=== PATIENT | female | born 1990 | race Caucasian/White ===

== ENCOUNTER 2017-11-04 13:38 | Emergency (ER) | payer SELFPAY ==
[2017-11-04] MEDS ORDERED: Sodium Chloride 0.9% 10 ML Syringe FLUSH PRN (13:58)
[2017-11-04] MEDS ORDERED: Sodium Chloride 0.9% 2.5 ML Syringe FLUSH PRN (13:58)
--- NOTE | 2017-11-04 14:00 | EDM.PDOC ---
ED HPI GENERAL MEDICAL PROBLEM - General Chief Complaint: Cardiovascular Problem Stated Complaint: HEART ISSUES Time Seen by Provider: 11/04/17 13:45 - History of Present Illness INITIAL COMMENTS - FREE TEXT/NARRATIVE: HISTORY AND PHYSICAL: History of present illness: The patient is a 27-year-old female who presents with palpitations and feeling like her heart is racing intermittently starting yesterday. The patient says she had palpitations in the past when she was 21 years old, 6 years ago, and had a workup including blood work thyroid studies Holter monitor and she does not know what she was diagnosed with but she was placed on blockers. She said that she took those for a while and then self stopped them but she says she never formally saw her chemical process operator or did more testing. She believes that she only saw an ER doctor. She also said that that time she had a low potassium. Currently the patient says that over the last 6 years she has not had palpitations and that this started yesterday. She thinks that anxiety is a component of it and she also states that she drinks on a daily basis and is going to start a rehabilitation program in [place] on Sunday. Patient says she is excited to start the rehabilitation program but she has been drinking every evening despite that. She denies drug use to me but does take prescription Adderall which she said she started within the last one year. She does drink caffeine and does not hydrate very well. She says she is eating and drinking normally and intermittently will gag but she is not vomiting nor does she have diarrhea. She says her stool is dark green and not black or bloody. She has no abdominal pain no chest pain no shortness of breath but says that when the palpitations happen she does feel little bit woozy but doesn't pass out or blackout. Patient also says she's not sure if she is and she is also worried that she has a UTI. After the patient was triaged and EKG was going to be performed which she refused and says she is concerned about the cost of this workup. In her interview with me she keeps trying to come up with hypothetical reasons for why this is happening including the drinking anxiety and is somewhat nonchalant about answering questions and the need for appropriate workup. She does not have a local provider. Patient tells us that she is on the Adderall for ADHD. She does admit that she does have anxiety issues and feels that she is somewhat anxious today and starting her program Review of systems: As per history of present illness and below otherwise all systems reviewed and negative. Past medical history: As per history of present illness and as reviewed below otherwise noncontributory. Surgical history: As per history of present illness and as reviewed below otherwise noncontributory. Social history: No reported history of drug or alcohol abuse. Family history: As per history of present illness and as reviewed below otherwise noncontributory. Physical exam: General: Well-developed well-nourished female who is speaking clearly in the ED and ambulates easily in the ED. Vital signs are noted by me patient was agreeable to have a environmental web crawler placed which shows a sinus rhythm which has a rate normally in the 70s to 90s but occasionally depending on our conversation will jump up to the low 100s. HEENT: Atraumatic, normocephalic, pupils reactive, negative for conjunctival pallor or scleral icterus, mucous membranes moist, throat clear, neck supple, nontender, trachea midline. Lungs: Clear to auscultation, breath sounds equal bilaterally, chest nontender. Heart: S1S2, regular, negative for clicks, rubs, or JVD. Abdomen: Soft, nondistended, nontender. Negative for masses or hepatosplenomegaly. Negative for costovertebral tenderness. Pelvis: Stable nontender. Genitourinary: Deferred. Rectal: Deferred. Extremities: Atraumatic, negative for cords or calf pain. Neurovascular unremarkable. Neuro: Awake, alert, oriented. Cranial nerves II through XII unremarkable. Cerebellum unremarkable. Motor and sensory unremarkable throughout. Exam nonfocal. the patient exhibits no tremulousness Diagnostics: CBC CMP troponin alcohol TSH magnesium UA UCG UDS urine culture Patient refused EKG--she says she feels like "she's had some many of them she doesn't want another one". Tried to stress the importance of doing one in light of her current symptomatology and she says she will think about it Therapeutics: IV O2 monitor IV fluids I did see the urine sample when the patient given to nursing and it was pink tinged but it is not grossly bloody As I discussed with the patient all of her testing results and that I would prescribe her antibiotics I have again asked the patient and we could perform the EKG and she again declines. She is finishing up her IV fluids and would like to proceed to go home and continue with her planned to start her rehabilitation program in 2 days. Impression: Palpitations by history stable, history of chronic alcohol use and Adderall use , new UTI/cystitis Definitive disposition and diagnosis as appropriate pending reevaluation and review of above. abdomen Pain Score (Numeric/FACES): 8 - Related Data Allergies Allergy/AdvReac Type Severity Reaction Status Date / Time penicillin Allergy Cannot Verified 11/04/17 13:44 Remember sulfabenzamide Allergy Cannot Verified 11/04/17 13:44 Remember Home Meds: Home Meds Amphetamine/Dextroamphetamine [Adderall] 20 mg PO ACBREAKFAST 11/04/17 [History] Amphetamine/Dextroamphetamine [Adderall] 30 mg PO DAILY 11/04/17 [History] cloNIDine [Catapres] 0.1 mg PO ASDIRECTED PRN 11/04/17 [History] Past Medical History Other OB/BYN History: low estrogen levels per pt report Social & Family History - Tobacco Use Smoking Status *Q: Never Smoker Second Hand Smoke Exposure: No - Recreational Drug Use Recreational Drug Use: No ED ROS GENERAL - Review of Systems Review Of Systems: ROS reveals no pertinent complaints other than HPI. ED EXAM, GENERAL - Physical Exam Exam: See Below (See dictation) Course - Vital Signs Last Recorded V/S: Last Vital Signs Temp 37.0 C 11/04/17 13:46 Pulse 95 11/04/17 13:46 Resp 18 11/04/17 13:46 BP 139/93 H 11/04/17 13:46 Pulse Ox 100 11/04/17 13:46 - Orders/Labs/Meds Orders: Active Orders 24 hr Category Date Time Status Cardiac Monitoring [RC] . DIRECTED Care 11/04/17 13:58 Active Oxygen Therapy, ED [RC] ASDIRECTED Care 11/04/17 13:58 Active Pulse Oximetry [RC] ASDIRECTED Care 11/04/17 13:58 Active CULTURE URINE [RM] Stat Lab 11/04/17 14:09 Received DRUG SCREEN, URINE [URCHEM] Stat Lab 11/04/17 14:09 Ordered HCG QUALITATIVE,URINE [URCHEM] Stat Lab 11/04/17 14:09 Ordered UA W/MICROSCOPIC [URIN] Stat Lab 11/04/17 14:07 Ordered Sodium Chloride 0.9% [Normal Saline] 1,000 ml Med 11/04/17 14:06 Active IV STAT Sodium Chloride 0.9% [Saline Flush] Med 11/04/17 13:58 Active 10 ml FLUSH ASDIRECTED PRN Sodium Chloride 0.9% [Saline Flush] Med 11/04/17 13:58 Active 2.5 ml FLUSH ASDIRECTED PRN Saline Lock Insert [OM.PC] Stat Oth 11/04/17 13:58 Ordered Medication Orders Sodium Chloride (Normal Saline) 1,000 mls @ 999 mls/hr IV STAT ONE Stop: 11/04/17 15:06 Last Admin: 11/04/17 14:14 Dose: 999 mls/hr Sodium Chloride (Saline Flush) 10 ml FLUSH ASDIRECTED PRN PRN Reason: Keep Vein Open Sodium Chloride (Saline Flush) 2.5 ml FLUSH ASDIRECTED PRN PRN Reason: Keep Vein Open Labs: Laboratory Tests 11/04/17 11/04/17 11/04/17 Range/Units 13:47 13:47 14:07 WBC 15.84 H (4.0-11.0) K/uL RBC 4.61 (4.30-5.90) M/uL Hgb 14.3 (12.0-16.0) g/dL Hct 41.2 (36.0-46.0) % MCV 89.4 (80.0-98.0) fL MCH 31.0 (27.0-32.0) pg MCHC 34.7 (31.0-37.0) g/dL RDW Std Deviation 44.6 (28.0-62.0) fl RDW Coeff of Simeon 14 (11.0-15.0) % Plt Count 290 (150-400) K/uL MPV 9.40 (7.40-12.00) fL Neut % (Auto) 77.3 (48.0-80.0) % Lymph % (Auto) 17.5 (16.0-40.0) % [place] % (Auto) 4.6 (0.0-15.0) % Eos % (Auto) 0.3 (0.0-7.0) % Baso % (Auto) 0.3 (0.0-1.5) % Neut # (Auto) 12.3 H (1.4-5.7) K/uL Lymph # (Auto) 2.8 H (0.6-2.4) K/uL Sterling # (Auto) 0.7 (0.0-0.8) K/uL Eos # (Auto) 0.1 (0.0-0.7) K/uL Baso # (Auto) 0.0 (0.0-0.1) K/uL Nucleated RBC % 0.0 /100WBC Nucleated RBCs # 0 K/uL Sodium 139 (136-145) mmol/L Potassium 3.9 (3.5-5.1) mmol/L Chloride 101 (98-107) mmol/L Carbon Dioxide 26.9 (21.0-32.0) mmol/L BUN 14 (7.0-18.0) mg/dL Creatinine 0.8 (0.6-1.0) mg/dL Est Cr Clr Drug Dosing TNP Estimated GFR (MDRD) > 60.0 ml/min Glucose 95 (74-106) mg/dL Calcium 9.5 (8.5-10.1) mg/dL Magnesium 1.5 (1.5-2.0) mg/dL Total Bilirubin 0.9 (0.2-1.0) mg/dL AST 36 (15-37) IU/L ALT 53 (14-63) IU/L Alkaline Phosphatase 72 (46-116) U/L Troponin I < 0.050 (0.000-0.056) ng/mL Total Protein 8.1 (6.4-8.2) g/dL Albumin 4.5 (3.4-5.0) g/dL Globulin 3.6 H (2.0-3.5) g/dL Albumin/Globulin Ratio 1.3 (1.3-2.8) TSH 3rd Generation 1.57 (0.36-3.74) uIU/mL Urine Color DARK YELLOW Urine Appearance CLOUDY Urine pH 6.5 (5.0-8.0) Ur Specific [place] 1.025 (1.001-1.035) Urine Protein 100 (NEGATIVE) mg/dL Urine Glucose (UA) NEGATIVE (NEGATIVE) mg/dL Urine Ketones NEGATIVE (NEGATIVE) mg/dL Urine Occult Blood LARGE H (NEGATIVE) Urine Nitrite NEGATIVE (NEGATIVE) Urine Bilirubin NEGATIVE (NEGATIVE) Urine Urobilinogen 0.2 (<2.0) EU/dL Ur Leukocyte Esterase LARGE (NEGATIVE) Urine RBC 15-20 (0-2/HPF) Urine WBC 75-100 (0-5/HPF) Ur Epithelial Cells MODERATE (NONE-FEW) Amorphous Sediment LIGHT (NEGATIVE) Urine Bacteria 1+ H (NEGATIVE) Urine Mucus LIGHT (NONE-MOD) Urine HCG, Qual (NEGATIVE) Urine Opiates Screen (NEGATIVE) Ur Oxycodone Screen (NEGATIVE) Urine Methadone Screen (NEGATIVE) Ur Barbiturates Screen (NEGATIVE) Ur Phencyclidine Scrn (NEGATIVE) Ur Amphetamine Screen (NEGATIVE) U Methamphetamines Scrn (NEGATIVE) U Benzodiazepines Scrn (NEGATIVE) U Cocaine Metab Screen (NEGATIVE) U Marijuana (THC) Screen (NEGATIVE) Ethyl Alcohol <3 mg/dL 11/04/17 11/04/17 Range/Units 14:09 14:09 WBC (4.0-11.0) K/uL RBC (4.30-5.90) M/uL Hgb (12.0-16.0) g/dL Hct (36.0-46.0) % MCV (80.0-98.0) fL MCH (27.0-32.0) pg MCHC (31.0-37.0) g/dL RDW Std Deviation (28.0-62.0) fl RDW Coeff of Simeon (11.0-15.0) % Plt Count (150-400) K/uL MPV (7.40-12.00) fL Neut % (Auto) (48.0-80.0) % Lymph % (Auto) (16.0-40.0) % Sterling % (Auto) (0.0-15.0) % Eos % (Auto) (0.0-7.0) % Baso % (Auto) (0.0-1.5) % Neut # (Auto) (1.4-5.7) K/uL Lymph # (Auto) (0.6-2.4) K/uL Sterling # (Auto) (0.0-0.8) K/uL Eos # (Auto) (0.0-0.7) K/uL Baso # (Auto) (0.0-0.1) K/uL Nucleated RBC % /100WBC Nucleated RBCs # K/uL Sodium (136-145) mmol/L Potassium (3.5-5.1) mmol/L Chloride (98-107) mmol/L Carbon Dioxide (21.0-32.0) mmol/L BUN (7.0-18.0) mg/dL Creatinine (0.6-1.0) mg/dL Est Cr Clr Drug Dosing Estimated GFR (MDRD) ml/min Glucose (74-106) mg/dL Calcium (8.5-10.1) mg/dL Magnesium (1.5-2.0) mg/dL Total Bilirubin (0.2-1.0) mg/dL AST (15-37) IU/L ALT (14-63) IU/L Alkaline Phosphatase (46-116) U/L Troponin I (0.000-0.056) ng/mL Total Protein (6.4-8.2) g/dL Albumin (3.4-5.0) g/dL Globulin (2.0-3.5) g/dL Albumin/Globulin Ratio (1.3-2.8) TSH 3rd Generation (0.36-3.74) uIU/mL Urine Color Urine Appearance Urine pH (5.0-8.0) Ur Specific [place] (1.001-1.035) Urine Protein (NEGATIVE) mg/dL Urine Glucose (UA) (NEGATIVE) mg/dL Urine Ketones (NEGATIVE) mg/dL Urine Occult Blood (NEGATIVE) Urine Nitrite (NEGATIVE) Urine Bilirubin (NEGATIVE) Urine Urobilinogen (<2.0) EU/dL Ur Leukocyte Esterase (NEGATIVE) Urine RBC (0-2/HPF) Urine WBC (0-5/HPF) Ur Epithelial Cells (NONE-FEW) Amorphous Sediment (NEGATIVE) Urine Bacteria (NEGATIVE) Urine Mucus (NONE-MOD) Urine HCG, Qual NEGATIVE (NEGATIVE) Urine Opiates Screen NEGATIVE (NEGATIVE) Ur Oxycodone Screen NEGATIVE (NEGATIVE) Urine Methadone Screen NEGATIVE (NEGATIVE) Ur Barbiturates Screen NEGATIVE (NEGATIVE) Ur Phencyclidine Scrn NEGATIVE (NEGATIVE) Ur Amphetamine Screen POSITIVE (NEGATIVE) U Methamphetamines Scrn NEGATIVE (NEGATIVE) U Benzodiazepines Scrn NEGATIVE (NEGATIVE) U Cocaine Metab Screen NEGATIVE (NEGATIVE) U Marijuana (THC) Screen NEGATIVE (NEGATIVE) Ethyl Alcohol mg/dL Meds: Medications Generic Name Dose Route Start Last Admin Trade Name Freq PRN Reason Stop Dose Admin Sodium Chloride 1,000 mls @ 999 mls/hr 11/04/17 14:06 11/04/17 14:14 Normal Saline IV 11/04/17 15:06 999 mls/hr STAT ONE Administration Sodium Chloride 10 ml 11/04/17 13:58 Saline Flush FLUSH ASDIRECTED PRN Keep Vein Open Sodium Chloride 2.5 ml 11/04/17 13:58 Saline Flush FLUSH ASDIRECTED PRN Keep Vein Open Departure - Departure Time of Disposition: 15:05 Disposition: Home, Self-Care 01 Condition: Good Clinical Impression: Palpitations, Alcohol use UTI (urinary tract infection) Qualifiers: Urinary tract infection type: acute cystitis Hematuria presence: with hematuria Qualified Code(s): N30.01 - Acute cystitis with hematuria Forms: ED Department Discharge Additional Instructions: The following information is given to patients seen in the emergency department who are being discharged to home. This information is to outline your options for follow-up care. We provide all patients seen in our emergency department with a follow-up referral. The need for follow-up, as well as the timing and circumstances, are variable depending upon the specifics of your emergency department visit. If you don't have a primary care physician on staff, we will provide you with a referral. We always advise you to contact your personal physician following an emergency department visit to inform them of the circumstance of the visit and for follow-up with them and/or the need for any referrals to a consulting specialist. The emergency department will also refer you to a specialist when appropriate. This referral assures that you have the opportunity for followup care with a specialist. All of these measure are taken in an effort to provide you with optimal care, which includes your followup. Under all circumstances we always encourage you to contact your private physician who remains a resource for coordinating your care. When calling for followup care, please make the office aware that this follow-up is from your recent emergency room visit. If for any reason you are refused follow-up, please contact the [facility] emergency department at and ask to speak to the emergency department charge nurse. [facility] Primary care- Internal Medicine and Family [place] [phone] Please take antibiotics until they are finished and push hydration and avoiding caffeinated products. Please discuss with your provider use of Adderall going forward. Please refrain from and/or stop drinking alcohol and continue on to your rehabilitation program as scheduled in 2 days. If you opt to connect with one of our providers in the clinic please use the resources given to above. Return to ER as needed and as discussed - My Orders Last 24 Hours: My Active Orders 11/04/17 13:58 Cardiac Monitoring [RC] . DIRECTED Oxygen Therapy, ED [RC] ASDIRECTED Pulse Oximetry [RC] ASDIRECTED Sodium Chloride 0.9% [Saline Flush] 10 ml FLUSH ASDIRECTED PRN Sodium Chloride 0.9% [Saline Flush] 2.5 ml FLUSH ASDIRECTED PRN Saline Lock Insert [OM.PC] Stat 11/04/17 14:06 Sodium Chloride 0.9% [Normal Saline] 1,000 ml IV STAT 11/04/17 14:07 UA W/MICROSCOPIC [URIN] Stat 11/04/17 14:09 CULTURE URINE [RM] Stat DRUG SCREEN, URINE [URCHEM] Stat HCG QUALITATIVE,URINE [URCHEM] Stat - Assessment/Plan Last 24 Hours: My Active Orders 11/04/17 13:58 Cardiac Monitoring [RC] . DIRECTED Oxygen Therapy, ED [RC] ASDIRECTED Pulse Oximetry [RC] ASDIRECTED Sodium Chloride 0.9% [Saline Flush] 10 ml FLUSH ASDIRECTED PRN Sodium Chloride 0.9% [Saline Flush] 2.5 ml FLUSH ASDIRECTED PRN Saline Lock Insert [OM.PC] Stat 11/04/17 14:06 Sodium Chloride 0.9% [Normal Saline] 1,000 ml IV STAT 11/04/17 14:07 UA W/MICROSCOPIC [URIN] Stat 11/04/17 14:09 CULTURE URINE [RM] Stat DRUG SCREEN, URINE [URCHEM] Stat HCG QUALITATIVE,URINE [URCHEM] Stat
[2017-11-04] MEDS ORDERED: Sodium Chloride 0.9% 1,000 ML IV ONE (14:06)
[2017-11-04 14:26] LABS: CHLORIDE,CL 101 mmol/L (98-107); SODIUM,NA 139 mmol/L (136-145)
[2017-11-04 15:33] VITALS: BP 129/91
== END 2017-11-04 15:29 | disposition home or self-care (01) ==
LOC: MW.ED 13:38
DX: N30.01 Acute cystitis with hematuria (principal); R00.2 Palpitations; F10.929 Alcohol use, unspecified with intoxication, unspecified; Z88.0 Allergy status to penicillin; Z88.2 Allergy status to sulfonamides; Z79.899 Other long term (current) drug therapy
CPT/HCPCS: 80053; 80305; 81001; 81025; 83735; 84443; 84484; 85025; 87086; 87088; 87186; 96360; 99284; G0480; J7040; 99283

== ENCOUNTER 2018-12-12 20:24 | Emergency (ER) | payer OTHER ==
--- NOTE | 2018-12-12 21:31 | EDM.PDOC ---
ED HPI GENERAL MEDICAL PROBLEM - General Chief Complaint: ENT Problem Stated Complaint: MOUTH SORES/FACE SWELLING Time Seen by Provider: 12/12/18 20:26 Source of Information: Reports: Patient History Limitations: Reports: No Limitations - History of Present Illness INITIAL COMMENTS - FREE TEXT/NARRATIVE: HISTORY AND PHYSICAL: History of present illness: Patient is a 28-year-old female who presents to the ED today with concern of having pink or sores throughout her mouth causing pain. Patient states she's been using [id number] numbing medications but still is having symptoms. Patient states this has been ongoing since yesterday. Patient states she had called her IMPORT EXPORT COORDINATOR as she is who told her to come to the ED as this is not related. Patient states she has pain with eating and drinking but she has been able to do so appropriately. Patient denies any other symptoms at this time. Patient denies fever, chills, chest pain, shortness of breath, or cough. Denies headache, neck stiff ness, change in vision, syncope, or near syncope. Denies nausea, vomiting, abdominal pain, diarrhea, constipation, or dysuria. Has not noted any blood in urine or stool. Patient has been eating and drinking appropriately. Review of systems: As per history of present illness and below otherwise all systems reviewed and negative. Past medical history: As per history of present illness and as reviewed below otherwise noncontributory. Surgical history: As per history of present illness and as reviewed below otherwise noncontributory. Social history: See social history for further information Family history: As per history of present illness and as reviewed below otherwise noncontributory. Physical exam: General: Patient is alert, oriented, and in no acute distress. Patient sitting comfortably on exam table. HEENT: Atraumatic, normocephalic, pupils equal and reactive bilaterally, negative for conjunctival pallor or scleral icterus, mucous membranes moist, TMs normal bilaterally, neck supple, nontender, trachea midline. No drooling or trismus noted. No meningeal signs. No hot potato voice noted. Throughout entire mouth are multiple aphthous ulcers scattered in no particular pattern; painful to touch. Lungs: Clear to auscultation, breath sounds equal bilaterally, chest nontender. Heart: S1S2, regular rate and rhythm without overt murmur Abdomen: Soft, nondistended, nontender. Negative for masses or hepatosplenomegaly. Negative for costovertebral tenderness. Pelvis: Stable nontender. Genitourinary: Deferred. Rectal: Deferred. Skin: Intact, warm, dry. No lesions or rashes noted. Extremities: Atraumatic, negative for cords or calf pain. Neurovascular unremarkable. Neuro: Awake, alert, oriented. Cranial nerves II through XII unremarkable. Cerebellum unremarkable. Motor and sensory unremarkable throughout. Exam nonfocal. Notes: Dr. Cheng directly involved in patient care. FHR: 155, Patient requesting basic labwork. Voices understanding and is agreeable to plan of care. Denies any further questions or concerns at this time. Diagnostics: CBC, CMP, UA, mono, strep, influenza (per patient request) Therapeutics: None Prescription: None Impression: Viral stomatitis Medical screening exam Plan: 1. You can use Tylenol as directed for pain and discomfort. This is safe to use in . 2. Follow-up with her IMPORT EXPORT COORDINATOR as discussed. Return to the ED as needed and as discussed. Definitive disposition and diagnosis as appropriate pending reevaluation and review of above. Oral/Mouth Pain Score (Numeric/FACES): 10 - Related Data Allergies Allergy/AdvReac Type Severity Reaction Status Date / Time penicillin Allergy Cannot Verified 12/12/18 20:29 Remember sulfabenzamide Allergy Cannot Verified 12/12/18 20:29 Remember Home Meds: Home Meds Ondansetron [Zofran ODT] 4 mg PO Q6H PRN 08/10/18 [History] PNV No.115/Iron Fumarate/FA [ 19 Chewable Tablet] 1 tab PO DAILY [History] Past Medical History HEENT History: Reports: None Cardiovascular History: Reports: Other (See Below) Other Cardiovascular History: heart palpitations Respiratory History: Reports: Asthma Gastrointestinal History: Reports: None Genitourinary History: Reports: None IMPORT EXPORT COORDINATOR History: Reports: , Other (See Below) Other IMPORT EXPORT COORDINATOR History: low estrogen levels per pt report Musculoskeletal History: Reports: None Neurological History: Reports: None Psychiatric History: Reports: ADHD, Suicidal Ideation Endocrine/Metabolic History: Reports: None Hematologic History: Reports: None Immunologic History: Reports: None Oncologic (Cancer) History: Reports: None Dermatologic History: Reports: None - Infectious Disease History Infectious Disease History: Reports: Chicken Pox - Past Surgical History Head Surgeries/Procedures: Reports: None HEENT Surgical History: Reports: Myringotomy w Tube(s), Tonsillectomy Cardiovascular Surgical History: Reports: None Female Surgical History: Reports: Breast Implant Oncologic Surgical History: Reports: None Dermatological Surgical History: Reports: Plastic Surgical Reconstruction/Repair Social & Family History - Family History Family Medical History: Noncontributory - Tobacco Use Smoking Status *Q: Never Smoker - Caffeine Use Caffeine Use: Reports: Soda - Recreational Drug Use Recreational Drug Use: No ED ROS ENT - Review of Systems Review Of Systems: ROS reveals no pertinent complaints other than HPI. ED EXAM, ENT - Physical Exam Exam: See Below (See dictation) Course - Vital Signs Last Recorded V/S: Last Vital Signs Temp 36.2 C 12/12/18 20:29 Pulse 84 12/12/18 20:29 Resp 19 12/12/18 20:29 BP 138/93 H 12/12/18 20:29 Pulse Ox 100 12/12/18 20:29 - Orders/Labs/Meds Orders: Active Orders 24 hr Category Date Time Status CULTURE STREP A CONFIRMATION [RM] Stat Lab 12/12/18 20:50 Results CULTURE URINE [RM] Stat Lab 12/12/18 21:10 Received STREP SCRN A RAPID W CULT CONF [RM] Stat Lab 12/12/18 20:50 Results Labs: Laboratory Tests 12/12/18 12/12/18 12/12/18 Range/Units 20:50 20:50 20:50 WBC 11.41 H (4.0-11.0) K/uL RBC 3.72 L (4.30-5.90) M/uL Hgb 11.2 L (12.0-16.0) g/dL Hct 32.7 L (36.0-46.0) % MCV 87.9 (80.0-98.0) fL MCH 30.1 (27.0-32.0) pg MCHC 34.3 (31.0-37.0) g/dL RDW Std Deviation 43.0 (28.0-62.0) fl RDW Coeff of Simeon 13 (11.0-15.0) % Plt Count 185 (150-400) K/uL MPV 10.90 (7.40-12.00) fL Neut % (Auto) 78.5 (48.0-80.0) % Lymph % (Auto) 10.4 L (16.0-40.0) % Dyer % (Auto) 11.0 (0.0-15.0) % Eos % (Auto) 0.0 (0.0-7.0) % Baso % (Auto) 0.1 (0.0-1.5) % Neut # (Auto) 9.0 H (1.4-5.7) K/uL Lymph # (Auto) 1.2 (0.6-2.4) K/uL Dyer # (Auto) 1.3 H (0.0-0.8) K/uL Eos # (Auto) 0.0 (0.0-0.7) K/uL Baso # (Auto) 0.0 (0.0-0.1) K/uL Nucleated RBC % 0.0 /100WBC Nucleated RBCs # 0 K/uL Sodium 135 L (136-145) mmol/L Potassium 3.5 (3.5-5.1) mmol/L Chloride 103 (98-107) mmol/L Carbon Dioxide 19.7 L (21.0-32.0) mmol/L BUN 10 (7.0-18.0) mg/dL Creatinine 0.5 L (0.6-1.0) mg/dL Est Cr Clr Drug Dosing 147.23 mL/min Estimated GFR (MDRD) > 60.0 ml/min Glucose 85 (74-106) mg/dL Calcium 8.6 (8.5-10.1) mg/dL Total Bilirubin 0.2 (0.2-1.0) mg/dL AST 15 (15-37) IU/L ALT 10 L (14-63) IU/L Alkaline Phosphatase 86 (46-116) U/L Total Protein 6.5 (6.4-8.2) g/dL Albumin 2.7 L (3.4-5.0) g/dL Globulin 3.8 (2.6-4.0) g/dL Albumin/Globulin Ratio 0.7 L (0.9-1.6) Urine Color Urine Appearance Urine pH (5.0-8.0) Ur Specific Underhill (1.001-1.035) Urine Protein (NEGATIVE) mg/dL Urine Glucose (UA) (NEGATIVE) mg/dL Urine Ketones (NEGATIVE) mg/dL Urine Occult Blood (NEGATIVE) Urine Nitrite (NEGATIVE) Urine Bilirubin (NEGATIVE) Urine Urobilinogen (<2.0) EU/dL Ur Leukocyte Esterase (NEGATIVE) Urine RBC (0-2/HPF) Urine WBC (0-5/HPF) Ur Epithelial Cells (NONE-FEW) Urine Bacteria (NEGATIVE) Monoscreen NEGATIVE (NEG) 12/12/18 Range/Units 21:10 WBC (4.0-11.0) K/uL RBC (4.30-5.90) M/uL Hgb (12.0-16.0) g/dL Hct (36.0-46.0) % MCV (80.0-98.0) fL MCH (27.0-32.0) pg MCHC (31.0-37.0) g/dL RDW Std Deviation (28.0-62.0) fl RDW Coeff of Simeon (11.0-15.0) % Plt Count (150-400) K/uL MPV (7.40-12.00) fL Neut % (Auto) (48.0-80.0) % Lymph % (Auto) (16.0-40.0) % Dyer % (Auto) (0.0-15.0) % Eos % (Auto) (0.0-7.0) % Baso % (Auto) (0.0-1.5) % Neut # (Auto) (1.4-5.7) K/uL Lymph # (Auto) (0.6-2.4) K/uL Dyer # (Auto) (0.0-0.8) K/uL Eos # (Auto) (0.0-0.7) K/uL Baso # (Auto) (0.0-0.1) K/uL Nucleated RBC % /100WBC Nucleated RBCs # K/uL Sodium (136-145) mmol/L Potassium (3.5-5.1) mmol/L Chloride (98-107) mmol/L Carbon Dioxide (21.0-32.0) mmol/L BUN (7.0-18.0) mg/dL Creatinine (0.6-1.0) mg/dL Est Cr Clr Drug Dosing mL/min Estimated GFR (MDRD) ml/min Glucose (74-106) mg/dL Calcium (8.5-10.1) mg/dL Total Bilirubin (0.2-1.0) mg/dL AST (15-37) IU/L ALT (14-63) IU/L Alkaline Phosphatase (46-116) U/L Total Protein (6.4-8.2) g/dL Albumin (3.4-5.0) g/dL Globulin (2.6-4.0) g/dL Albumin/Globulin Ratio (0.9-1.6) Urine Color YELLOW Urine Appearance SLT CLOUDY Urine pH 6.0 (5.0-8.0) Ur Specific Underhill <= 1.005 (1.001-1.035) Urine Protein NEGATIVE (NEGATIVE) mg/dL Urine Glucose (UA) NEGATIVE (NEGATIVE) mg/dL Urine Ketones 40 H (NEGATIVE) mg/dL Urine Occult Blood MODERATE H (NEGATIVE) Urine Nitrite NEGATIVE (NEGATIVE) Urine Bilirubin NEGATIVE (NEGATIVE) Urine Urobilinogen 0.2 (<2.0) EU/dL Ur Leukocyte Esterase SMALL H (NEGATIVE) Urine RBC 0-2 (0-2/HPF) Urine WBC 1-3 (0-5/HPF) Ur Epithelial Cells MODERATE (NONE-FEW) Urine Bacteria RARE (NEGATIVE) Monoscreen (NEG) Departure - Departure Time of Disposition: 21:49 Disposition: Home, Self-Care 01 Clinical Impression: Viral stomatitis, Encounter for medical screening examination - Discharge Information Referrals: Nelda Singh MD [Primary Care Provider] - Forms: ED Department Discharge Additional Instructions: The following information is given to patients seen in the emergency department who are being discharged to home. This information is to outline your options for follow-up care. We provide all patients seen in our emergency department with a follow-up referral. The need for follow-up, as well as the timing and circumstances, are variable depending upon the specifics of your emergency department visit. If you don't have a primary care physician on staff, we will provide you with a referral. We always advise you to contact your personal physician following an emergency department visit to inform them of the circumstance of the visit and for follow-up with them and/or the need for any referrals to a consulting specialist. The emergency department will also refer you to a specialist when appropriate. This referral assures that you have the opportunity for follow-up care with a specialist. All of these measure are taken in an effort to provide you with optimal care, which includes your follow-up. Under all circumstances we always encourage you to contact your private physician who remains a resource for coordinating your care. When calling for follow-up care, please make the office aware that this follow-up is from your recent emergency room visit. If for any reason you are refused follow-up, please contact the [facility] Emergency Department at and asked to speak to the emergency department charge nurse. [facility] Primary Care [address] [place] [address] [facility] [address] [place] [id number] 1. You can use Tylenol as directed for pain and discomfort. This is safe to use in . 2. Follow-up with her IMPORT EXPORT COORDINATOR as discussed. Return to the ED as needed and as discussed. - My Orders Last 24 Hours: My Active Orders 12/12/18 20:50 CULTURE STREP A CONFIRMATION [RM] Stat STREP SCRN A RAPID W CULT CONF [RM] Stat 12/12/18 21:10 CULTURE URINE [RM] Stat - Assessment/Plan Last 24 Hours: My Active Orders 12/12/18 20:50 CULTURE STREP A CONFIRMATION [RM] Stat STREP SCRN A RAPID W CULT CONF [RM] Stat 12/12/18 21:10 CULTURE URINE [RM] Stat
[2018-12-12 21:33] LABS: CHLORIDE,CL 103 mmol/L (98-107); SODIUM,NA 135 mmol/L (136-145)
[2018-12-12 23:18] VITALS: BP 120/74
== END 2018-12-12 22:05 | disposition home or self-care (01) ==
LOC: MW.ED 20:24
DX: K12.1 Other forms of stomatitis (principal); B97.89 Other viral agents as the cause of diseases classified elsewhere; J45.909 Unspecified asthma, uncomplicated; Z88.0 Allergy status to penicillin; Z88.2 Allergy status to sulfonamides
CPT/HCPCS: 36415; 80053; 81001; 85025; 86308; 87081; 87086; 87804; 87880-QW; 99282; 99283

== ENCOUNTER 2019-03-15 16:49 | Emergency (ER) | payer OTHER ==
[2019-03-15] MEDS ORDERED: Sodium Chloride 0.9% 1,000 ML IV ONE (17:22)
--- NOTE | 2019-03-15 17:26 | EDM.PDOCBH ---
ED HPI GENERAL MEDICAL PROBLEM - General Chief Complaint: Behavioral/Psych Stated Complaint: DEPRESSION Time Seen by Provider: 03/15/19 17:04 Source of Information: Reports: Patient History Limitations: Reports: No Limitations - History of Present Illness INITIAL COMMENTS - FREE TEXT/NARRATIVE: HISTORY AND PHYSICAL: History of present illness: Patient is a 28-year-old female who presents to the emergency room with complaints of depression. She states she does have a long-standing history of anxiety, depression and suicidal ideation along with alcohol abuse prior to her . She states she had an uneventful , delivered in [place] by Dr. Singh. Post delivery she had no complications. She was started on Zoloft approximately one week ago, had taken this previously and had good results. She is currently living with her father whom she believes is not very reliable. She states she feels sad and anxious. She denies having any thoughts of self-harm, harming others or harming her infant. The infant is asleep and resting in her arms comfortably appears well-nourished and well taken care of. She has been breast-feeding although has been having some difficulty over the past week as she is not producing as much and has been supplementing with formula. She states that she has not been eating or drinking as much. Review of systems: As per history of present illness and below otherwise all systems reviewed and negative. Past medical history: As per history of present illness and as reviewed below otherwise noncontributory. Surgical history: As per history of present illness and as reviewed below otherwise noncontributory. Social history: See social history for further information Family history: As per history of present illness and as reviewed below otherwise noncontributory. Physical exam: General: Well-developed and well-nourished 28-year-old female. Alert and oriented. She is tearful during examination ON no acute distress. HEENT: Atraumatic, normocephalic, pupils equal and reactive bilaterally, negative for conjunctival pallor or scleral icterus, mucous membranes moist, TMs normal bilaterally, throat clear, neck supple, nontender, trachea midline. No drooling or trismus noted. No meningeal signs. No hot potato voice noted. Lungs: Clear to auscultation, breath sounds equal bilaterally, chest nontender. Heart: S1S2, regular rate and rhythm without overt murmur Abdomen: Soft, nondistended, nontender. Negative for masses or hepatosplenomegaly. Negative for costovertebral tenderness. Pelvis: Stable nontender. Genitourinary: Deferred. Rectal: Deferred. Skin: Intact, warm, dry. No lesions or rashes noted. Extremities: Atraumatic, moves all extremities per self without difficulty or deficits, negative for cords or calf pain. Neurovascular unremarkable. Neuro: Awake, alert, oriented. Cranial nerves II through XII unremarkable. Cerebellum unremarkable. Motor and sensory unremarkable throughout. Exam nonfocal. Notes: Patient was asked several times by myself and nursing staff about thoughts of self harm, suicide, or harming baby/others: she denies any such thoughts. Patient refuses to talk with long term care social worker. She states that she does not want to talk with anyone who would want to separate her from her baby. She is agreeable to talking to [facility]. [facility]nel from [facility] was contacted to talk to patient about community resources. ALEXANDR Perez electrical instrumentation technician, she is aware of this patient and suggests that her Zoloft to be increased to 150 mg and close follow-up. Patient is requesting to be discharged to home, states she will go to [place] to follow-up with Dr. Singh. Patient's father is at the bedside. Supportive care measures were reviewed and discussed. Voices understanding and is agreeable to plan of care. Denies any further questions or concerns at this time. Diagnostics: CBC, CMP, Drug Screen, TSH, UA (patient unable to give sample- missed the cup) Therapeutics: IV fluids Prescription: None Impression: Post Depression Plan: 1. If at anytime you feel unsafe (whether you feel like harming yourself, others or your baby) call 911 and return to the emergency room. 2. Increase your Zoloft dose to 150mg daily. 3. Follow up with your primary care provider (phone numbers listed) within the next week. 4. Return to the ED as needed as discussed. Definitive disposition and diagnosis as appropriate pending reevaluation and review of above. - Related Data Allergies Allergy/AdvReac Type Severity Reaction Status Date / Time penicillin Allergy Cannot Verified 02/06/19 22:23 MDT Remember sulfabenzamide Allergy Cannot Verified 02/06/19 22:23 MDT Remember Home Meds: Home Meds Ondansetron [Zofran ODT] 4 mg PO Q6H PRN 08/10/18 [History] PNV No.115/Iron Fumarate/FA [ 19 Chewable Tablet] 1 tab PO DAILY [History] Dextroamphetamine/Amphetamine [Adderall 20 mg Tablet] 20 mg PO ASDIRECTED PRN [History] Dextroamphetamine/Amphetamine [Adderall] 30 mg PO DAILY 03/15/19 [History] Sertraline [Zoloft] 50 mg PO DAILY 03/15/19 [History] Past Medical History HEENT History: Reports: Other (See Below) Other HEENT History: 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 Cardiovascular History: Reports: Other (See Below) Other Cardiovascular History: heart palpitations Respiratory History: Reports: Asthma Gastrointestinal History: Reports: Chronic Constipation, GERD Genitourinary History: Reports: None PHYSICAL THERAPY TEACHER History: Reports: , Spontaneous Other PHYSICAL THERAPY TEACHER History: low estrogen levels per pt report Musculoskeletal History: Reports: None Neurological History: Reports: None Psychiatric History: Reports: ADHD, Anxiety, Depression Other Psychiatric History: hx of impulsiveness, suicide attempt 02/2015, denies any current ideation Endocrine/Metabolic History: Reports: None Hematologic History: Reports: None Immunologic History: Reports: None Oncologic (Cancer) History: Reports: None Dermatologic History: Reports: None - Infectious Disease History Infectious Disease History: Reports: Chicken Pox Other Infectious Disease History: Hx of MRSA - Past Surgical History HEENT Surgical History: Reports: Myringotomy w Tube(s), Tonsillectomy Female Surgical History: Reports: Breast Implant Social & Family History - Family History Family Medical History: Noncontributory HEENT: Reports: None Cardiac: Reports: Hypertension Psychiatric: Reports: ADHD, Anxiety, Depression Endocrine/Metabolic: Reports: Diabetes, type II Dermatologic: Reports: None - Caffeine Use Caffeine Use: Reports: Soda ED ROS GENERAL - Review of Systems Review Of Systems: ROS reveals no pertinent complaints other than HPI. ED EXAM, BEHAVIORAL HEALTH - Physical Exam Exam: See Below (See dictation) COURSE, BEHAVIORAL HEALTH COMP - Course Vital Signs: Last Vital Signs Temp 97.7 F 03/15/19 17:01 Pulse 82 03/15/19 17:01 Resp 18 03/15/19 17:01 BP 127/95 H 08/31/19 17:01 Pulse Ox 100 03/15/19 17:01 Orders, Labs, Meds: Active Orders 24 hr Category Date Time Status DRUG SCREEN, URINE [URCHEM] Stat Lab 03/15/19 17:22 Ordered UA RFX GILSON AND CULT IF INDIC [URIN] Stat Lab 03/15/19 17:22 Ordered Laboratory Tests 03/15/19 03/15/19 Range/Units 17:10 17:10 WBC 8.69 (4.0-11.0) K/uL RBC 4.36 (4.30-5.90) M/uL Hgb 12.3 (12.0-16.0) g/dL Hct 36.9 (36.0-46.0) % MCV 84.6 (80.0-98.0) fL MCH 28.2 (27.0-32.0) pg MCHC 33.3 (31.0-37.0) g/dL RDW Std Deviation 46.2 (28.0-62.0) fl RDW Coeff of Simeon 15 (11.0-15.0) % Plt Count 351 (150-400) K/uL MPV 9.70 (7.40-12.00) fL Neut % (Auto) 62.5 (48.0-80.0) % Lymph % (Auto) 29.5 (16.0-40.0) % Addison % (Auto) 6.3 (0.0-15.0) % Eos % (Auto) 1.5 (0.0-7.0) % Baso % (Auto) 0.2 (0.0-1.5) % Neut # (Auto) 5.4 (1.4-5.7) K/uL Lymph # (Auto) 2.6 H (0.6-2.4) K/uL Addison # (Auto) 0.6 (0.0-0.8) K/uL Eos # (Auto) 0.1 (0.0-0.7) K/uL Baso # (Auto) 0.0 (0.0-0.1) K/uL Nucleated RBC % 0.0 /100WBC Nucleated RBCs # 0 K/uL Sodium 141 (136-145) mmol/L Potassium 3.8 (3.5-5.1) mmol/L Chloride 105 (98-107) mmol/L Carbon Dioxide 23.9 (21.0-32.0) mmol/L BUN 16 (7.0-18.0) mg/dL Creatinine 0.8 (0.6-1.0) mg/dL Est Cr Clr Drug Dosing 92.02 mL/min Estimated GFR (MDRD) > 60.0 ml/min Glucose 92 (74-106) mg/dL Calcium 9.4 (8.5-10.1) mg/dL Total Bilirubin 0.6 (0.2-1.0) mg/dL AST 24 (15-37) IU/L ALT 24 (14-63) IU/L Alkaline Phosphatase 127 H (46-116) U/L Total Protein 7.1 (6.4-8.2) g/dL Albumin 3.3 L (3.4-5.0) g/dL Globulin 3.8 (2.6-4.0) g/dL Albumin/Globulin Ratio 0.9 (0.9-1.6) TSH 3rd Generation 1.28 (0.36-3.74) uIU/mL Medications Discontinued Medications Generic Name Dose Route Start Last Admin Trade Name Freq PRN Reason Stop Dose Admin Sodium Chloride 1,000 mls @ 999 mls/hr 03/15/19 17:22 03/15/19 17:48 Normal Saline IV 03/15/19 18:22 999 mls/hr STAT ONE Administration Departure - Departure Time of Disposition: 19:04 Disposition: Home, Self-Care 01 Clinical Impression: Post depression - Discharge Information Instructions: Baby Blues Referrals: PCP,Unknown [Primary Care Provider] - Forms: ED Department Discharge Additional Instructions: The following information is given to patients seen in the emergency department who are being discharged to home. This information is to outline your options for follow-up care. We provide all patients seen in our emergency department with a follow-up referral. The need for follow-up, as well as the timing and circumstances, are variable depending upon the specifics of your emergency department visit. If you don't have a primary care physician on staff, we will provide you with a referral. We always advise you to contact your personal physician following an emergency department visit to inform them of the circumstance of the visit and for follow-up with them and/or the need for any referrals to a consulting specialist. The emergency department will also refer you to a specialist when appropriate. This referral assures that you have the opportunity for follow-up care with a specialist. All of these measure are taken in an effort to provide you with optimal care, which includes your follow-up. Under all circumstances we always encourage you to contact your private physician who remains a resource for coordinating your care. When calling for follow-up care, please make the office aware that this follow-up is from your recent emergency room visit. If for any reason you are refused follow-up, please contact the [facility] Emergency Department at and asked to speak to the emergency department charge nurse. [facility] Primary Care [address] [place] [id number] [facility] [address] [place] [id number] [facility] [address] [place] [address] 1. If at anytime you feel unsafe (whether you feel like harming yourself, others or your baby) call 911 and return to the emergency room JACOB. 2. Increase your Zoloft dose to 150mg daily. 3. Follow up with your primary care provider (phone numbers listed) within the next week. 4. Return to the ED as needed as discussed. - My Orders Last 24 Hours: My Active Orders 03/15/19 17:22 DRUG SCREEN, URINE [URCHEM] Stat UA RFX GILSON AND CULT IF INDIC [URIN] Stat - Assessment/Plan Last 24 Hours: My Active Orders 03/15/19 17:22 DRUG SCREEN, URINE [URCHEM] Stat UA RFX GILSON AND CULT IF INDIC [URIN] Stat
[2019-03-15 18:30] LABS: CHLORIDE,CL 105 mmol/L (98-107); SODIUM,NA 141 mmol/L (136-145)
[2019-03-15 19:28] VITALS: BP 138/91
== END 2019-03-15 19:18 | disposition home or self-care (01) ==
LOC: MW.ED 16:49
DX: F53.0 Postpartum depression (principal); K21.9 Gastro-esophageal reflux disease without esophagitis; F41.9 Anxiety disorder, unspecified; F32.9 Major depressive disorder, single episode, unspecified; Z79.899 Other long term (current) drug therapy
CPT/HCPCS: 36415; 80053; 84443; 85025; 96360; 99284; J7040